=== PATIENT | male | born 1980 | race African-American/Black ===

== ENCOUNTER 2016-05-28 00:06 | Emergency (ER) | payer OTHER ==
[~2016-05-28] VITALS: Ht 175.3 cm; Wt 110.0 kg
[~2016-05-28 00:06] MED LIST: AMLO10 PO; HYDR-2768 PO; HYDR-2952 PO
[2016-05-28 00:17] VITALS: BP 130/80; PULSE 72; RESP 20; TEMP 98.6; O2SAT 97
[2016-05-28] MEDS ORDERED: DICL50TA3 PO (00:42)
[2016-05-28] MEDS ORDERED: CYCL1TAB29 PO (00:42)
[2016-05-28] MEDS ORDERED: KETOROLAC TROMETHAMINE 60 MG/2 ML (IM) VIAL IM ONE (00:45)
[2016-05-28] MEDS ORDERED: ORPHENADRINE INJ 60 MG/2 ML AMP IM ONE (00:45)
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
[2016-05-28 01:45] VITALS: RESP 16
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
== END 2016-05-28 02:19 | disposition home or self-care (01) ==
LOC: NEPB 00:06
DX: S39.012A Strain of muscle, fascia and tendon of lower back, initial encounter (principal); S40.012A Contusion of left shoulder, initial encounter; V49.50XA Passenger injured in collision with unspecified motor vehicles in traffic accident, initial encounter
CPT/HCPCS: 72100; 73030; 96372; 99284; J1885; J2360